=== PATIENT | female | born 1955 | race Caucasian/White ===

== ENCOUNTER → 2017-01-02 | Outpatient (CLI) | payer BC | END | disposition home or self-care (01) | LOC: RAD 16:52 | PROVIDERS: ATTEND Neurological Surgery | DX: M50.33 Other cervical disc degeneration, cervicothoracic region (principal); M47.893 Other spondylosis, cervicothoracic region; M48.02 Spinal stenosis, cervical region; M41.85 Other forms of scoliosis, thoracolumbar region; M51.36 Other intervertebral disc degeneration, lumbar region; M48.56XA Collapsed vertebra, not elsewhere classified, lumbar region, initial encounter for fracture; M48.06 Spinal stenosis, lumbar region; Z98.1 Arthrodesis status; Z98.890 Other specified postprocedural states | CPT/HCPCS: 72050; 72072; 72082; 72110 ==